=== PATIENT | male | born 1990 | race Caucasian/White ===

== ENCOUNTER 2023-02-07 09:01 | Emergency (ER) | payer OTHER, SELFPAY ==
[2023-02-07 09:06] VITALS: BP 146/97; PULSE 82; RESP 20; TEMP 36.3; O2SAT 100
--- NOTE | 2023-02-07 09:12 | PC.NURSE ---
visual acuity down at this time; both eyes 20/30, right eye 20/200, left eye 20/50
--- NOTE | 2023-02-07 09:19 | ED.EYEPROB ---
HPI - Eye Problem General Chief complaint: Eye Problems Stated complaint: blurry vision Time Seen by Provider: 02/07/23 09:04 History of Present Illness HPI Narrative: 32-year-old male with a history of type 1 diabetes reports for evaluation of right eye redness, clear drainage and foreign body sensation. Patient states he woke up with a red and irritated eye 2 days ago which got better throughout the day. States he woke up today with worsening eye redness, clear drainage and blurred vision. He states it feels like there is something in his eye. He denies trauma, pain with EOMs, fever. Denies purulent drainage or crusting. Denies loss of vision, states it just seems blurry out of the right eye. Pt does wear contacts but he has not worn them since the onset of symptoms. Related Data Home Medications Medication Instructions Recorded Confirmed insulin degludec 100 unit/mL (3 12 unit subcut DAILY 04/17/20 01/04/23 mL) subcutaneous pen (Tresiba FlexTouch U-100 insulin) Allergies Allergy/AdvReac Type Severity Reaction Status Date / Time Sulfa (Sulfonamide Allergy Mild Rash Verified 02/07/23 08:28 Antibiotics) Review of Systems Review of Systems: CONSTITUTIONAL: Denies fever, chills EYES: See HPI ENT: Denies rhinorrhea, congestion, sore throat, or otalgia. CARDIOVASCULAR: Denies chest pain, palpitations, or edema. RESPIRATORY: Denies cough or dyspnea. GASTROINTESTINAL: Denies abdominal pain, nausea, vomiting, or diarrhea. GENITOURINARY: Denies dysuria or hematuria. SKIN: Denies rash or itching. MUSCULOSKELETAL: Denies back pain, joint pain, or myalgia. NEUROLOGIC: Denies headache, numbness, dizziness, or weakness. PSYCHIATRIC: Denies anxiety or depression. [facility] Past Medical History Medical History (Updated 02/07/23 @ 09:55 by Anais Chavez PA-C) Daily consumption of alcohol Diabetic keto-acidosis History of pneumonia Patient was hospitalized in the fifth grade for pneumonia, and what sounds like an empyema requiring surgical intervention. Surgical History Surgical History History of chest tube placement Status post thoracotomy For what sounds like an empyema when the patient was in fifth grade. Family History Family History Father Lung cancer Social History Social History Social History: The patient lives in [place] with his girlfriend. He designates his girlfriend, Fatimah Booth, as his surrogate decision-maker and he wishes to be a full code. He has no children. 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 He used to chew tobacco, but now vapes. He drinks 2, double drinks most nights. Occasional marijuana use. Smoking status: Former smoker Tobacco type: cigars Smokeless tobacco user: other Second hand tobacco smoke exposure: No Smoking end date: 10/29/19 Additional smoking assessment comments: vapes and smokes small nugget of marijuana daily Alcohol intake: current Drinks per week: 4 Substance use: current Substance use type: marijuana Lack of Transportation: No Lack of Food: Never True Current Housing: I Have Housing Concerned About Future Housing: No Difficulty Paying Gas/Electric Bills: No Difficulty Paying for Meds: No Currently Unemployed: No Education: Master's Degree or Higher Difficulty w/ Childcare or Family Care: No Living arrangements: with family Occupation/Education: occupation Gender identity (if verbalized by the patient): Male Sexual Orientation (if Verbalized by the Patient): Straight or Heterosexual Spiritual care concerns: No Agree to blood products: Yes Exam Narrative: GENERAL: Well-appearing, in no acute distress. HEAD: Normocephalic EYES: PERRLA, EOMI. Right eye with diffuse erythema to the c
== END 2023-02-07 10:44 | disposition home or self-care (01) ==
PROVIDERS: Emergency Provider Physician Assistant; PCP Family Medicine
DX: H61.001 Unspecified perichondritis of right external ear (principal); Z87.01 Personal history of pneumonia (recurrent); F17.290 Nicotine dependence, other tobacco product, uncomplicated
CPT/HCPCS: 99283